=== PATIENT | male | born 1940 | race Caucasian/White ===

== ENCOUNTER 2018-03-26 10:28 | Emergency (ER) | payer BC ==
[~2018-03-26] VITALS: Ht 170.2 cm; Wt 79.4 kg
--- OUTSIDE RECORDS SUMMARY | ~2018-03-26 | XMS | Clinical Summary ---
Demographics + + + | Address | [address] | | | [place] [address] | + + + | Home Phone | | + + + | Preferred Language | Unknown | + + + | Marital Status | | + + + | Mormonism Affiliation | 1041 | + + + | Race | Unknown | + + + | Ethnic Group | Unknown | + + + Author + + + | Author | [facility] | + + + | Organization | [facility] | + + + | Address | Unknown | + + + | Phone | Unavailable | + + + Support + + + + + | Name | Relationship | Address | Phone | + + + + + | Gia Gaspar | ECON | [address] | | | | | [place] [address] | | + + + + + Care Team Providers + +------+ + | Care Feed Research Technician Name | Role | Phone | + +------+ + PP | Unavailable | + +------+ + Allergies Not on File Current Medications Not on file Active Problems Not on file Social History + +-------+ +--------+------+ | Tobacco Use | Types | Packs/Day | Years | Date | | | | | Used | | + +-------+ +--------+------+ | Never Assessed | | | | | + +-------+ +--------+------+ + + + | Sex Assigned at | Date Recorded | | | | + + + | Not on file | | + + + Plan of Treatment Not on file Results Not on filefrom Last 3 Months"
--- OUTSIDE RECORDS SUMMARY | ~2018-03-26 | XMS | Clinical Summary ---
Demographics + + + | Address | [address] | | | [place] [address] | + + + | Home Phone | | + + + | Preferred Language | Unknown | + + + | Marital Status | | + + + | Yazidi Affiliation | Unknown | + + + | Race | White | + + + | Ethnic Group | Not or | + + + Author + + + | Author | [facility] | + + + | Organization | [facility] | + + + | Address | Unknown | + + + | Phone | Unavailable | + + + Support + + + + + | Name | Relationship | Address | Phone | + + + + + | ZACHARY GASPAR | ECON | [address] | | | | | [place] | | | | | [address] | | + + + + + Care Team Providers + +------+ + | Care Wireless Communications Engineer Name | Role | Phone | + +------+ + PP | Unavailable | + +------+ + Source Comments NEEL is fully live on both [facility] and [facility] Allergies + + + + + + | Active Allergy | Reactions | Severity | Noted | Comments | | | | | Date | | + + + + + + | Aspirin | Pruritus | Medium | 01/05/20 | Low dose of | | | | | 09 | aspirin does not | | | | | | cause reaction, | | | | | | states pt. | + + + + + + | Iodine | Hives, Pruritus | High | 01/05/20 | Reaction from | | | | | 09 | injected iodine for | | | | | | angioplasty. | + + + + + + Current Medications + + +-------+---------+------+------+-------+ | Prescription | Sig. | Disp. | Refills | Star | End | Statu | | | | | | t | Date | s | | | | | | Date | | | + + +-------+---------+------+------+-------+ | Aspirin 81 mg Oral | Take 81 mg by mouth | | | | | Activ | | Tablet | two times daily. 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 | + + + Family History + + +------+ + | Medical History | Relation | Name | Comments | + + +------+ + | Cataracts | Mother | | | + + +------+ + | High blood pressure | Mother | | | + + +------+ + | Heart Disease | Paternal | | | | | Grandfath | | | | | er | | | + + +------+ + | Diabetes | Neg Hx | | | + + +------+ + | Glaucoma | Neg Hx | | | + + +------+ + | Macular degeneration | Neg Hx | | | + + +------+ + | Retinal detachment | Neg Hx | | | + + +------+ + + +------+--------+ + | Relation | Name | Status | Comments | + +------+--------+ + | Mother | | | | + +------+--------+ + | Paternal Grandfather | | | | + +------+--------+ + Social History + +-------+ +--------+------+ | Tobacco [...] | + + + Plan of Treatment + + + + + | Health Maintenance | Due Date | Last Done | Comments | + + + + + | Pneumococcal (Adult) | | | | | (1 2 - PCV13) | 5 | | | + + + + + | Influenza (Flu) | | | | | vaccination (#1) | 8 | | | + + + + + Results Not on filefrom Last 3 Months Insurance + +--------+ +------+ + + | Payer | Benefi | Subscriber | Type | Phone | Address | | | t Plan | ID | | | | | | / | | | | | | | Group | | | | | + +--------+ +------+ + + | [employer] [place] [place] | BLUE | [phone] | PPO | [phone] [address] [phone] [place] | | | CROSS | | | [phone] | [place] [address] | | | [place] | | | | | | | L | | | | | + +--------+ +------+ + + + +--------+ +--------+ + + | Guarantor Name | Accoun | Relation to | Date | Phone | Billing Address | | | t Type | Patient | of | | | | | | | | | | + +--------+ +--------+ + + | PARAMJIT GASPAR | Person | Self [birth year] Home: | [address] | | | al/Fam | | 1940 | [phone] | [place] [address] | | | emmy | | | [phone] | | + +--------+ +--------+ + +"
--- OUTSIDE RECORDS SUMMARY | ~2018-03-26 | XMS | Clinical Summary ---
Demographics + + + | Address | [address] | | | [place] [address] | + + + | Home Phone | | + + + | Preferred Language | Unknown | + + + | Marital Status | | + + + | Yazidi Affiliation | 1041 | + + + | Race | Unknown | + + + | Ethnic Group | Unknown | + + + Author + + + | Author | [facility] | + + + | Organization | [facility] | + + + | Address | Unknown | + + + | Phone | Unavailable | + + + Support + + + + + | Name | Relationship | Address | Phone | + + + + + | Gia Gaspar | ECON | [address] | | | | | [place] [address] | | + + + + + Care Team Providers + +------+ + | Care Escalator Service Mechanic Name | Role | Phone | + [...]
--- OUTSIDE RECORDS SUMMARY | ~2018-03-26 | XMS | Clinical Summary ---
Demographics + + + | Address | [address] | | | [place] [address] | + + + | Home Phone | | + + + | Preferred Language | Unknown | + + + | Marital Status | | + + + | Zoroastrian Affiliation | Unknown | + + + | Race | White | + + + | Ethnic Group | Not or | + + + Author + + + | Author | [facility] | + + + | Organization | [facility] | + + + | Address | Unknown | + + + | Phone | Unavailable | + + + Support + + + + + | Name | Relationship | Address | Phone | + + + + + | ZACHARY GASPAR | ECON | [address] | | | | | [place] | | | | | [address] | | + + + + + Care Team Providers + +------+ + | Care Manager Environmental Health And Safety Name | Role | Phone | + +------+ + PP | Unavailable | + +------+ + Source Comments NEEL is fully live on both [facility] Ambulatory and [facility] InPatient.[facility] Allergies + + + + + + [...] | PPO | [phone] | [address] [phone] [place] | | | CROSS | | | [phone] | [place] [address] | | | [place] | | | [...] | 1940 | [phone] | [place] [address] | | | emmy | | | [phone] | | + +--------+ +--------+ + +"
[2018-03-26] MEDS ORDERED: KEFLEX500 MG PO (10:59)
[2018-03-26] MEDS ORDERED: NORCO 5-325 TA1 EACH PO (11:39)
[2018-03-26] MEDS ORDERED: METOPROLOL SUCC25 MG PO (11:44)
[2018-03-26] MEDS ORDERED: ATORVASTATIN CA80 MG PO (11:45)
[2018-03-26] MEDS ORDERED: ASPIRIN81 MG PO (11:45)
== END 2018-03-26 12:10 | disposition home or self-care (01) ==
LOC: ED 10:28
DX: S61.112A Laceration without foreign body of left thumb with damage to nail, initial encounter (principal); W27.8XXA Contact with other nonpowered hand tool, initial encounter; I10 Essential (primary) hypertension; I25.2 Old myocardial infarction
CPT/HCPCS: 12001; 73140; 90471; 90715; 99283